=== PATIENT | female | born 1980 | race Caucasian/White ===

== ENCOUNTER → 2022-12-23 09:30 | Outpatient (BNV) | payer BC, SELFPAY | PROVIDERS: Visit Provider Psychiatry & Neurology Psychiatry | DX: F33.9 Major depressive disorder, recurrent, unspecified (principal); F10.90 Alcohol use, unspecified, uncomplicated | CPT/HCPCS: 90792; 99213 ==

== ENCOUNTER 2023-01-05 08:45 | Outpatient (RCR) | payer BC, SELFPAY ==
[2022-12-22 13:22] VITALS: BP 102/70; PULSE 80; TEMP 36.8
[2022-12-22 13:34] VITALS: BMI 30.9
--- NOTE | 2022-12-22 15:27 | PC.ADMIT ---
Patient is a 42 year old female who was referred to [facility] by her therapist d/t increased sxs of depression and ETOH use which has increased since July 2022. Per Integrative Assessment patient reportedly lost her job d/t ETOH use and arriving to work four hours later. Patient reports she has been isolating in her bed sleeping most of the time. Difficulty doing ADL's. Reports feelings of anger towards her self and feeling easily frustrated with others. She denied SI. She is alert and oriented x4. Calm and cooperative. I gave her a copy of her safety plan if needed and reviewed this with her. Medications were reconciled with patient and patient's pharmacy.
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
--- NOTE | 2022-12-23 15:38 | HO.PHP ---
Clients case was reviewed and opened today in treatment team.
--- NOTE | 2022-12-27 16:40 | HO.PHP ---
[facility] staff faxed the referral for Jill for OP therapy and a med provider to [facility]. [facility] staff is awaiting the scheduled appointment.
--- NOTE | 2022-12-30 12:19 | HO.PHPPROGNO ---
Subjective Subjective Date of Service: 12/30/22 Reason For Visit: MDD,AUD Healthcare Proxy: No Guardianship: No Medical Problems Affecting Mental Status: No Interim History: pt has been on wellbutrin XL 150 mg daily x 7days; no increase in anxiety or agitation; no restlessness. Pt does report headaches but states she had headaches before starting the lamictal; she has talked to her PCP about headaches and she feels she needs new glasses but has been putting it off due to cost. Pt reports some benefit from groups but still feels depressed; se does not want to increase wellbutrin today. Medication Compliance: Yes Side effects from medications: No Attending Groups: Yes Review of Systems Acute medical concerns: No Medical Review of Systems: unchanged Review of Systems Review of Systems no changes Mental Status Exam Mental Status Exam Narrative: Pleasant. Engaged. Appropriate presented. Organized. Dysthymic. flat affect No SI. No HI. No agitation. No psychosis. Insight and judgment good Diagnostics Vital Signs (24Hr): BMI result Body Mass Index 30.9 Assessment & Plan Assessment & Plan (1) Major depression, recurrent: Status: Acute Code(s): F33.9 - Major depressive disorder, recurrent, unspecified (2) Alcohol use disorder: Status: Acute Code(s): F10.90 - Alcohol use, unspecified, uncomplicated Plan Assessment:pt is 42 to female with MDD and AUD in need of continued treatment Plan: Continue outpatient medications continue wellbutrin XL 150 mg qam Primary care provider will continue medications after discharge. Has a short-term therapist through primary care office. We will utilize AA support after discharge. Patient educated on: diagnosis, medication risk/benefits and therapeutic strategies Informed Consent: understands Reason for contiued partial hosp. stay Substantial Risk for: harm to self, inability to function and rapid decompensation Certification I certify that partial hospital treatment is medically necessary due to the symptoms and problems resulting from the patient's mental illness and the failure to treat the patient at the partial hospital level of care would likely result in the patient requiring inpatient psychiatric care which could not be prevented at a less intensive level of care. Total time managing care of this patient today _30___ minutes. Discharge Plan Discharge Attending provider: Nico Calle Medications: New bupropion HCl 150 mg Tablet Extended Release 24 Hr 150 mg PO DAILY 30 Days Qty: 30 0RF Discontinued lamotrigine 25 mg tablet 50 mg PO DAILY No Action amlodipine 5 mg tablet 5 mg PO DAILY clonidine HCl 0.2 mg tablet 0.2 mg PO BID tacrolimus 0.1 % Ointment 1 appl TOPICAL BID omeprazole 20 mg Capsule,Delayed Release(Dr/Ec) 20 mg PO DAILY Patient Comments: Patient stated she takes OTC ibuprofen [Motrin] 600 mg Tablet 600 mg PO BID PRN (Reason: Pain) Patient Comments: Patient takes OTC norethindrone (contraceptive) 0.35 mg tablet 0.35 mg PO DAILY fluoxetine 20 mg capsule 60 mg PO DAILY Linzess 145 mcg capsule 145 mcg PO QAM Patient Comments: Patient stated she takes once a week Rx Instructions: Patient stated she takes once a week. Last filled 10/06/22 # 30 lamotrigine 25 mg tablet 50 mg PO DAILY Patient Comments: Patient stated taking daily. Last filled 11/05/22. Stand Alone Forms: Patient Portal Discharge page
--- NOTE | 2022-12-30 17:10 | HO.PHP ---
[facility] staff followed up with [facility] regarding the referral made for Jill for OP therapy and psychiatry. Linda from [facility], informed the clinician that they have been having issues with their system but do have the referral and will call with appointments later today. [facility] staff was receptive and awaiting appointment times and dates.
--- NOTE | 2022-12-31 13:16 | HO.PHP ---
[facility] staff contacted [facility] to gather appointment dates for Jill. [facility] staff was informed that they are currently working on it and will call by end of date. [facility] staff is awaiting appointment times.
--- NOTE | 2022-12-31 14:29 | HO.PHP ---
PHP staff received a call from [facility], in which Kinza provided the OP therapy appointment for Jill. Jill's appointment is scheduled for January 11, 2023 at 12 PM with Mattie Hong at [address] [place] [address], [place], [place]. [facility] staff is still awaiting on the psychiatric appointment.
== END 2023-01-05 23:59 | disposition home or self-care (01) ==
LOC: HO.PHPA 08:45
PROVIDERS: Visit Provider Psychiatry & Neurology Psychiatry
DX: F33.9 Major depressive disorder, recurrent, unspecified (principal); F10.90 Alcohol use, unspecified, uncomplicated; Z79.899 Other long term (current) drug therapy
CPT/HCPCS: 90791; 90853

== ENCOUNTER 2024-02-11 16:08 | Emergency (ER) | payer OTHER, SELFPAY ==
--- NOTE | ~2024-02-11 | CT_ITS ---
EXAMINATION: CT LUMBAR SPINE WITHOUT CONTRAST CLINICAL INFORMATION: Back pain. Popping sensation. COMPARISON: None available. TECHNIQUE: Multidetector helical imaging of the lumbar spine was obtained without intravenous contrast. Multiple axial reformats and coronal/sagittal reconstructions were created the technologist workstation for review. This CT examination was performed using dose optimization techniques as appropriate, variously including the following: *Automated exposure control. *Adjustment of mA and/or kV according to patient size (this includes techniques or standardized protocols for targeted exams where dose is matched to indication/reason for exam; i.e. extremities or head). *Use of iterative reconstruction technique. DLP: 327 mGy-cm FINDINGS: Instrumented posterior fusion of L4-L5 with bilateral periventricular screws. Disc spacer in place at L4-L5. Mild degenerative grade 1 anterolisthesis of L3 on L4. Otherwise, normal anatomic alignment. No evidence of acute fracture or traumatic subluxation. The vertebral body heights are maintained. Mild degenerative disc disease from L1-L4. Laminectomy changes from L4-S1. No suspicious lytic or sclerotic osseous lesions. No significant abnormalities of the paraspinal musculature. Limited evaluation of the intra-abdominal structures without significant abnormalities. The abdominal aorta is of normal contour and caliber with minimal calcific atherosclerotic disease. AXIAL SPINAL LEVELS: L1-L2: Normal annular contour. There is mild bilateral facet joint arthropathy. There is no neural foraminal stenosis. There is no demonstrated spinal canal stenosis. L2-L3: Shallow diffuse disc bulge. There is moderate right and mild left facet joint arthropathy. There is mild bilateral neural foraminal stenosis. There is no demonstrated spinal canal stenosis. L3-L4: Moderate diffuse disc bulge exacerbated by uncovering from anterolisthesis. There is severe bilateral facet joint arthropathy. There is moderate bilateral neural foraminal stenosis. There appears to be moderate spinal canal stenosis. L4-L5: Fused at this level. The facets are fused with moderate hypertrophic change. There is mild right and no left neural foraminal stenosis. There is no demonstrated spinal canal stenosis. L5-S1: Mild diffuse disc bulge. There is severe bilateral facet joint arthropathy. There is mild bilateral neural foraminal stenosis. There is no demonstrated spinal canal stenosis. CT/CT lumbar spine wo IV con IMPRESSION: 1. Instrumented posterior fusion of L4-L5. No evidence of acute fracture or traumatic subluxation of the lumbar spine. 2. Moderate multilevel degenerative spondyloarthropathy of the lumbar spine as described in detail above. Most notably on this limited exam without intrathecal contrast, there appears to be moderate spinal canal stenosis at L3-L4. Moderate neural foraminal stenoses at L3-L4. Electronically signed by: Aidan Sprague DO 02/11/2024 06:27 PM EDT
--- NOTE | 2024-02-11 16:22 | ED_ITS ---
HPI - General Adult General Chief complaint: Back Pain/Injury Stated complaint: back popping/everything went black/had 2 fusions Time Seen by Provider: 02/11/24 20:48 Related Data Home Medications ?Medication ?Instructions ?Recorded ?Confirmed amlodipine 5 mg tablet 5 mg PO DAILY 12/22/22 12/22/22 clonidine HCl 0.2 mg tablet 0.2 mg PO BID 12/22/22 12/22/22 fluoxetine 20 mg capsule 60 mg PO DAILY 12/22/22 12/22/22 ibuprofen 600 mg tablet 600 mg PO BID PRN Pain 12/22/22 12/22/22 linaclotide 145 mcg capsule 145 mcg PO QAM 12/22/22 12/22/22 (Linzess) norethindrone (contraceptive) 0.35 0.35 mg PO DAILY 12/22/22 12/22/22 mg tablet omeprazole 20 mg capsule,delayed 20 mg PO DAILY 12/22/22 12/22/22 release tacrolimus 0.1 % topical ointment 1 appl topical BID 12/22/22 12/22/22 lamotrigine 25 mg tablet 50 mg PO DAILY 12/27/22 12/27/22 Previous Rx's ?Medication ?Instructions ?Recorded bupropion HCl 150 mg 24 hr tablet, 150 mg PO DAILY 30 days #30 tabs 12/23/22 extended release Allergies Allergy/AdvReac Type Severity Reaction Status Date / Time blackberry Allergy Intermediate Hives Verified 02/11/24 16:26 raspberry Allergy Intermediate Hives Verified 02/11/24 16:26 [facility] Past Medical History Medical History (Updated 02/16/24 @ 06:32 by Jennifer Connolly NP) Hypertension History of hypothyroidism Palpitation Costal chondritis FUAD III with severe dysplasia Breast microcalcifications Venous (peripheral) insufficiency Dysplastic nevus Vitiligo Synovial cyst Pain IBS (irritable bowel syndrome) Psoriasis Endometriosis GERD (gastroesophageal reflux disease) HTN (hypertension) Surgical History (Updated 12/22/22 @ 13:31 by Pooja Miller RN) S/P laparoscopic surgery H/O left knee surgery H/O spinal fusion Social History Social History Household Members: None Patient Tobacco Use Status: Former Tobacco user Tobacco use type: Cigarette Advance Directives: No Advance Directives Information Provided: No Do you have a plan to hurt others: No Plan Physical Exam ED Vital Signs: BMI result Body Mass Index 28.2 Course Course Course Narrative: This is a rapid medical exam performed by Katrina Connolly NP: Additional HPI, ROS, PE not included below will be deferred to primary provider. Patient is a 43-year-old female with history of HTN, hypothyroidism, IBS, psoriasis, endometriosis, GERD presenting to the ED with complaint of back pain which began this morning, then felt a pop, then a short time later she felt a pop again and everything went black, but denies syncope, states this lasted 1-2 seconds. History of back surgeries/spinal fusion. Denies saddle anesthesia, bowel/bladder incontinence. Plan: lumbar CT Medical Decision Making Lab Data Labs: Lab Results 02/11/24 Range/Units 17:12 Urine Test NEGATIVE (NEGATIVE) Discharge Plan Discharge Clinical Impression: Back pain Patient Disposition: Left W/O Completing Treatment Prescriptions: No Action amlodipine 5 mg tablet 5 mg PO DAILY clonidine HCl 0.2 mg tablet 0.2 mg PO BID tacrolimus 0.1 % Ointment 1 appl TOPICAL BID omeprazole 20 mg Capsule,Delayed Release(Dr/Ec) 20 mg PO DAILY Patient Comments: Patient stated she takes OTC ibuprofen [Motrin] 600 mg Tablet 600 mg PO BID PRN (Reason: Pain) Patient Comments: Patient takes OTC norethindrone (contraceptive) 0.35 mg tablet 0.35 mg PO DAILY fluoxetine 20 mg capsule 60 mg PO DAILY Linzess 145 mcg capsule 145 mcg PO QAM Patient Comments: Patient stated she takes once a week Rx Instructions: Patient stated she takes once a week. Last filled 10/06/22 # 30 bupropion HCl 150 mg Tablet Extended Release 24 Hr 150 mg PO DAILY 30 Days Qty: 30 0RF lamotrigine 25 mg tablet 50 mg PO DAILY Patient Comments: Patient stated taking daily. Last filled 11/05/22. Discharge Date/Time: 02/11/24 21:20 Print Language: Kiswahili
[2024-02-11 16:24] VITALS: BP 110/81; PULSE 91; RESP 18; TEMP 36.8; O2SAT 100; BMI 28.2
[2024-02-11 17:19] LABS: UPreg QC Valid YES; Urine Pregnancy NEGATIVE (NEGATIVE)
--- NOTE | 2024-02-11 21:12 | PC.NURSE ---
this nurse assumed care of section at 2100-- while this nurse was assisting another pt, pt eloped from dept.
== END 2024-02-11 21:20 | disposition left against medical advice (07) ==
PROVIDERS: Registered Nurse Emergency; Emergency Provider Internal Medicine; PCP Internal Medicine
DX: M54.9 Dorsalgia, unspecified (principal); I10 Essential (primary) hypertension; E03.9 Hypothyroidism, unspecified
CPT/HCPCS: 72131; 81025; 99282; 99284